=== PATIENT | male | born 1965 | race Caucasian/White ===

== ENCOUNTER 2016-12-12 20:48 | Inpatient (IN) | payer OTHER ==
[~2016-12-12] VITALS: Ht 167.6 cm; Wt 69.8 kg
[~2016-12-12 20:48] MED LIST: GOOD SENSE ASPI81 M3 PO; LIPI20 PO; OMEPRAZOLE DR20 M1 PO
[2016-12-13 03:05] LABS: BASOPHIL % 0.7 % (0-2); PLATELET COUNT 338 x10^3mcL (130-400)
[2016-12-13 03:16] LABS: CALCIUM 8.9 mg/dL (8.5-10.1); CARBON DIOXIDE 27.4 mmol/L (21-32); CHLORIDE SERUM 94 mmol/L (98-107); GFR1 > 60 mL/min; GLUCOSE SERUM 113 mg/dL (74-106); POTASSIUM SERUM 3.9 mmol/L (3.5-5.1); SODIUM SERUM 132 mmol/L (136-145)
[2016-12-13 03:20] LABS: ALBUMIN 4.3 g/dL (3.4-5.0); ALKALINE PHOSPHATASE 53 U/L (46-116); ALT/SGPT 45 U/L (16-63); AST/SGOT 21 U/L (15-37); BILIRUBIN TOTAL 0.8 mg/dL (0.20-1.00); TOTAL PROTEIN, SERUM 7.7 g/dL (6.4-8.2)
[2016-12-13 05:26] VITALS: BP 129/88
[2016-12-13 05:49] LABS: AMYLASE 56 U/L (25-115); CHOLESTEROL 228 mg/dL (<200); CHOLESTEROL/HDL RATIO 4.8; HDL CHOLESTEROL 48 mg/dL (40-60); LIPASE 159 IU/L (73-393); TRIGLYCERIDES 499 mg/dL (<150)
[2016-12-13 05:55] LABS: FREE T4 1.15 ng/dL (0.76-1.46); FREE THYROXINE INDEX 3.7 ug/dL (1.4-4.5); T4(THYROXINE) 9.5 ug/dL (4.7-13.3)
[2016-12-13 05:57] LABS: T3 TOTAL 1.39 ng/mL
[2016-12-13 07:35] VITALS: BP 119/84
[2016-12-13 09:57] LABS: microscopic required? NO
[2016-12-13 10:09] LABS: AMPHETAMINE QUAL UR POSITIVE (NEG <=1000)
[2016-12-13 10:10] LABS: UA SPECIFIC GRAVITY <=1.005 (1.005-1.035); urine erythrocyte NEGATIVE (NEGATIVE)
[2016-12-13 13:20] VITALS: BP 101/75
[2016-12-13 17:15] VITALS: BP 105/74
[2016-12-13 20:45] VITALS: BP 104/72
[2016-12-14 05:51] VITALS: BP 111/70
[2016-12-14 06:00] LABS: BASOPHIL % 0.5 % (0-2); PLATELET COUNT 285 x10^3mcL (130-400); RED CELL DISTRIBUTION WIDTH 13.2 % (11.5-14.5)
[2016-12-14 06:33] LABS: CARBON DIOXIDE 30.2 mmol/L (21-32); CHLORIDE SERUM 104 mmol/L (98-107); GFR1 > 60 mL/min; GLUCOSE SERUM 95 mg/dL (74-106); MAGNESIUM 2.3 mg/dL (1.8-2.4); PHOSPHOROUS 3.7 mg/dL (2.5-4.9); POTASSIUM SERUM 4.6 mmol/L (3.5-5.1); SODIUM SERUM 139 mmol/L (136-145)
[2016-12-14 09:32] VITALS: BP 114/71
[2016-12-14 13:04] VITALS: BP 105/71
[2016-12-14] MEDS ORDERED: PROTONIX40 MG PO (14:39)
[2016-12-14 15:09] VITALS: BP 105/71
== END 2016-12-14 16:14 | disposition home or self-care (01) | DRG 243 ==
LOC: ED 20:48 → DU 12-13 04:03
PROVIDERS: Emergency Medicine; ADMIT Family Medicine
DX: K21.9 Gastro-esophageal reflux disease without esophagitis (principal); I27.2 Other secondary pulmonary hypertension; E87.1 Hypo-osmolality and hyponatremia; E87.8 Other disorders of electrolyte and fluid balance, not elsewhere classified; E78.5 Hyperlipidemia, unspecified; E02 Subclinical iodine-deficiency hypothyroidism; F10.10 Alcohol abuse, uncomplicated; Z68.24 Body mass index [BMI] 24.0-24.9, adult
CPT/HCPCS: 80307; 83880; 84439; C9113; G0480; J7030